=== PATIENT | male | born 1970 | race Caucasian/White ===

== ENCOUNTER 2021-02-25 08:19 | Emergency (ER) | payer MEDICAID ==
[~2021-02-25] VITALS: Ht 180.3 cm; Wt 72.6 kg
[2021-02-25 08:22] VITALS: BP 124/86
[2021-02-25 09:25] VITALS: BP 139/92
[2021-02-25 10:35] VITALS: BP 124/89
[2021-02-25] MEDS ORDERED: KETOROLAC 60 MG VIAL (30MG/ML) IM ONE (11:45)
[2021-02-25 12:17] VITALS: BP 121/85
[2021-02-25] MEDS ORDERED: KETOROLAC 60 MG VIAL (30MG/ML) ONE (12:50)
[2021-02-25 13:23] VITALS: BP 138/76
[2021-02-25 14:41] VITALS: BP 153/88
[2021-02-25] MEDS ORDERED: ACET1TAB25 PO (14:49)
[2021-02-25] MEDS ORDERED: NAPR500T6 PO (14:49)
== END 2021-02-25 15:24 | disposition home or self-care (01) ==
LOC: EDH 08:19
DX: S92.001A Unspecified fracture of right calcaneus, initial encounter for closed fracture (principal); F41.9 Anxiety disorder, unspecified; I25.10 Atherosclerotic heart disease of native coronary artery without angina pectoris; F17.200 Nicotine dependence, unspecified, uncomplicated; Z95.5 Presence of coronary angioplasty implant and graft; Z71.6 Tobacco abuse counseling; Z79.1 Long term (current) use of non-steroidal anti-inflammatories (NSAID); X58.XXXA Exposure to other specified factors, initial encounter; Y93.39 Activity, other involving climbing, rappelling and jumping off; Y92.9 Unspecified place or not applicable; Y99.8 Other external cause status
CPT/HCPCS: 29515; 73610; 73700; 96372; 99285; J1885